=== PATIENT | female | born 1990 | race American Indian/Alaskan Native ===

== ENCOUNTER 2017-12-06 02:03 | Emergency (ER) | payer MEDICAID ==
[2017-12-06 02:46] LABS: Hematocrit 34.3 % (30.3-42.9); Hemoglobin 11.4 gm/dl (10.1-14.3); Mean Corpuscular HGB Conc 33 % (30-34); Mean Corpuscular Volume 78 fl (79-97); Platelet Count 255 K/mm3 (140-440); Red Blood Count 4.41 M/mm3 (3.65-5.03); Red Cell Distribution Width 14.5 % (13.2-15.2)
[2017-12-06 02:51] LABS: Mean Corpuscular Hemoglobin 26 pg (28-32)
[2017-12-06 03:10] LABS: Alanine Aminotransferase 6 units/L (7-56); Albumin 3.5 g/dL (3.9-5); BUN/Creatinine Ratio 15; Blood Urea Nitrogen 6 mg/dL (7-17); Calcium 8.2 mg/dL (8.4-10.2); Hemolysis Index 2
[2017-12-06 03:44] LABS: Band Neutrophils # (Manual) 0.1 K/mm3; Basophils % (Manual) 0 % (0.0-1.8); Total Cells Counted 100
[2017-12-06 03:45] LABS: Anisocytosis 1+; Platelet Estimate Consistent w Auto
--- NOTE | 2017-12-06 05:41 | Ultrasound Report ---
FINAL REPORT EXAM: US OB > = 14 WEEKS FETUS HISTORY: 19 wks gest with vag bleeding TECHNIQUE: Routine transabdominal imaging was obtained of the pelvis including Doppler interrogation of the fetus. FINDINGS: There is a single viable intrauterine in breech position with an estimated gestational age of 19 weeks 4 days based on sonographic criteria. The heart rate is 149 BPM. The placenta is anterior in position and is grade 0. There is no evidence of placental abruption. The amniotic fluid volume is markedly diminished. There are no gross anomalies involving the choroid plexus, cisterna magna, cerebellum, lateral ventricles, stomach, bladder, heart, or three-vessel cord. The kidneys, diaphragm, cord insertion and spine are not adequately seen for evaluation. The cervical length is 3.8 cm. Free fluid is not seen. IMPRESSION: Single viable breech IUP, 19 weeks 4 days. heart rate is 149 BPM. Oligohydramnios.
[2017-12-06 06:08] LABS: Bilirubin,Urine NEG (Negative); Blood,Urine LG (Negative); Color,Urine Yellow (Yellow); Mucus,Urine 1+ /HPF; Protein,Urine <15 mg/dL mg/dL (Negative); Urobilinogen,Urine < 2.0 mg/dL (<2.0)
[2017-12-06 06:11] LABS: RBC,Urine > 182.0 /HPF (0.0-6.0)
[2017-12-06 07:24] VITALS: BP 103/56
--- NOTE | 2017-12-06 07:34 | Emergency Department Report ---
ED HPI - General Chief complaint: Vaginal Bleeding Stated complaint: VAGINAL BLEEDING Time Seen by Provider: 12/06/17 07:30 Source: patient Mode of arrival: Ambulatory Limitations: No Limitations - History of Present Illness Initial comments: 27-year-old female currently 19 weeks presents to the hospital complaining of vaginal bleeding that started 11 PM last night. Patient has used 2 pads since bleeding started. She complains some mild abdominal cramping pain. Patient started having leakage of fluid 2 weeks ago. During this thime she has been admitted to both [facility] and [facility]. Initially at [facility] she was prescribed antibiotics for her fluid leakage. She then went to [facility] for a second opinion and was admitted as well and told that she will need to start antibiotics at 23 weeks. Patient has not contacted her primary [employer] [facility] [employer] [facility] since symptoms started. This is patient's 7 , she has 5 children, and no history of miscarriages or abortions. - Related Data Previous Rx's Medication Instructions Recorded Last Taken Type Ibuprofen [Motrin] 600 mg PO Q6H PRN #60 tablet 01/14/15 Unknown Rx Vit-Fe Fumar-FA [ 1 each PO QDAY #30 tablet 01/14/15 Unknown Rx Vitamin] oxyCODONE /ACETAMINOPHEN [Percocet 1 tab PO Q6HR PRN #30 tablet 01/14/15 Unknown Rx 5/325] Docusate Sodium [Colace] 100 mg PO BID PRN #60 capsule 05/08/16 Unknown Rx Ferrous Sulfate [Feosol 325 MG tab] 325 mg PO TID #120 tablet 05/08/16 Unknown Rx Ibuprofen [Motrin 600 MG tab] 600 mg PO Q6H PRN #30 tablet 05/08/16 Unknown Rx Allergies Allergy/AdvReac Type Severity Reaction Status Date / Time No Known Allergies Allergy Verified 08/08/13 10:11 ED Review of Systems ROS: Stated complaint: VAGINAL BLEEDING Other details as noted in HPI Comment: All other systems reviewed and negative ED Past Medical Hx - Past Medical History Previous Medical History?: No Hx Hypertension: No Hx Heart Attack/AMI: No Hx Congestive Heart Failure: No Hx Diabetes: No Hx Deep Vein Thrombosis: No Hx Liver Disease: No Hx Renal Disease: No Hx Sickle Cell Disease: No Hx Seizures: No Hx Asthma: No Hx COPD: No Hx HIV: No - Surgical History Past Surgical History?: No - Social History Smoking Status: Former Smoker Substance Use Type: None - Medications Home Medications: Home Medications Medication Instructions Recorded Confirmed Last Taken Type Ibuprofen [Motrin] 600 mg PO Q6H PRN #60 tablet 01/14/15 Unknown Rx Vit-Fe Fumar-FA [ 1 each PO QDAY #30 tablet 01/14/15 Unknown Rx Vitamin] oxyCODONE /ACETAMINOPHEN [Percocet 1 tab PO Q6HR PRN #30 tablet 01/14/15 Unknown Rx 5/325] Docusate Sodium [Colace] 100 mg PO BID PRN #60 capsule 05/08/16 Unknown Rx Ferrous Sulfate [Feosol 325 MG tab] 325 mg PO TID #120 tablet 05/08/16 Unknown Rx Ibuprofen [Motrin 600 MG tab] 600 mg PO Q6H PRN #30 tablet 05/08/16 Unknown Rx ED Physical Exam - General Limitations: No Limitations - Other Other exam information: General: No limitations, patient is alert in no acute distress Head exam: Atraumatic, normocephalic Eyes exam: Normal appearance ENT: Moist mucous membrane, normal oropharynx Neck exam: Normal inspection, full range of motion, no meningismus nontender Respiratory exam: Clear to auscultation bilateral, no wheezes, rales, crackles Cardiovascular: Normal rate and rhythm, normal heart sounds Abdomen: Soft, nondistended, and nontender, with normal bowel sounds, no rebound, or guarding Extremity: Full range of motion normal inspection no deformity Back: Normal Inspection, full range of motion, no tenderness Neurologic: Alert, oriented x3, cranial nerves intact, no motor or sensory deficit Psychiatric: normal affect, normal mood Skin: Warm, dry, intact ED Course Vital Signs 12/06/17 02:14 Temperature 98.8 F Pulse Rate 99 H Blood Pressure 103/56 [Left] O2 Sat by Pulse 98 Oximetry - Reevaluation(s) Reevaluation #1: 12/06/17 08:04 Patient was apparently belligerent with staff and upset because of the wait. After I saw patient I informed her that I will speak to her [employer] doctor. I went back to the room and she was gone. The nurse found her in the waiting room and she stated she was waiting for her mother to sheepskin pickler the children. At this time they rechecked on inpatient status and she left the department after being informed that [employer] was going to admit her. - Consultations Consultation #1: 12/06/17 07:41 case d/w [facility] prep room supervisor, will admit pt ED Medical Decision Making - Lab Data Result diagrams: 12/06/17 02:27 12/06/17 02:27 Lab Results 12/06/17 12/06/17 12/06/17 Range/Units 02:27 02:27 02:27 WBC 10.8 (4.5-11.0) K/mm3 RBC 4.41 (3.65-5.03) M/mm3 Hgb 11.4 (10.1-14.3) gm/dl Hct 34.3 (30.3-42.9) % MCV 78 L (79-97) fl MCH 26 L (28-32) pg MCHC 33 (30-34) % RDW 14.5 (13.2-15.2) % Plt Count 255 (140-440) K/mm3 Add Manual Diff Complete Total Counted 100 Seg Neuts % (Manual) 66.0 (40.0-70.0) % Band Neutrophils % 1.0 % Lymphocytes % (Manual) 25.0 (13.4-35.0) % Reactive Lymphs % (Man) 0 % Monocytes % (Manual) 6.0 (0.0-7.3) % Eosinophils % (Manual) 1.0 (0.0-4.3) % Basophils % (Manual) 0 (0.0-1.8) % Metamyelocytes % 1.0 % Myelocytes % 0 % Promyelocytes % 0 % Blast Cells % 0 % Nucleated RBC % Not Reportable Seg Neutrophils # Man 7.1 (1.8-7.7) K/mm3 Band Neutrophils # 0.1 K/mm3 Lymphocytes # (Manual) 2.7 (1.2-5.4) K/mm3 Abs React Lymphs (Man) 0.0 K/mm3 Monocytes # (Manual) 0.6 (0.0-0.8) K/mm3 Eosinophils # (Manual) 0.1 (0.0-0.4) K/mm3 Basophils # (Manual) 0.0 (0.0-0.1) K/mm3 Metamyelocytes # 0.1 K/mm3 Myelocytes # 0.0 K/mm3 Promyelocytes # 0.0 K/mm3 Blast Cells # 0.0 K/mm3 WBC Morphology Not Reportable Hypersegmented Neuts Not Reportable Hyposegmented Neuts Not Reportable Hypogranular Neuts Not Reportable Smudge Cells Not Reportable Toxic Granulation Not Reportable Toxic Vacuolation Not Reportable Dohle Bodies Not Reportable Pelger-Huet Anomaly Not Reportable Too Rods Not Reportable Platelet Estimate Consistent w auto Clumped Platelets Not Reportable Plt Clumps, EDTA Not Reportable Large Platelets Not Reportable Giant Platelets Not Reportable Platelet Satelliting Not Reportable Plt Morphology Comment Not Reportable RBC Morphology Not Reportable Dimorphic RBCs Not Reportable Polychromasia Not Reportable Hypochromasia Not Reportable Poikilocytosis Not Reportable Anisocytosis 1+ Microcytosis Not Reportable Macrocytosis Not Reportable Spherocytes Not Reportable Pappenheimer Bodies Not Reportable Sickle Cells Not Reportable Target Cells Not Reportable Tear Drop Cells Not Reportable Ovalocytes Not Reportable Helmet Cells Not Reportable Clemons-Sehili Bodies Not Reportable Herreid Rings Not Reportable Rayray Cells Not Reportable Bite Cells Not Reportable Crenated Cell Not Reportable Elliptocytes Not Reportable Acanthocytes (Spur) Not Reportable Rouleaux Not Reportable Hemoglobin C Crystals Not Reportable Schistocytes Not Reportable Malaria parasites Not Reportable Noel Bodies Not Reportable Hem Pathologist Commnt No Sodium 135 L (137-145) mmol/L Potassium 3.6 (3.6-5.0) mmol/L Chloride 98.8 (98-107) mmol/L Carbon Dioxide 23 (22-30) mmol/L Anion Gap 17 mmol/L BUN 6 L (7-17) mg/dL Creatinine 0.4 L (0.7-1.2) mg/dL Estimated GFR > 60 ml/min BUN/Creatinine Ratio 15 % Glucose 88 (65-100) mg/dL Calcium 8.2 L (8.4-10.2) mg/dL Total Bilirubin < 0.20 (0.1-1.2) mg/dL AST 10 (5-40) units/L ALT 6 L (7-56) units/L Alkaline Phosphatase 43 (35-129) units/L Total Protein 6.4 (6.3-8.2) g/dL Albumin 3.5 L (3.9-5) g/dL Albumin/Globulin Ratio 1.2 % HCG, Quant 78265 H (0-4) mIU/mL Urine Color (Yellow) Urine Turbidity (Clear) Urine pH (5.0-7.0) Ur Specific Toutle (1.003-1.030) Urine Protein (Negative) mg/dL Urine Glucose (UA) (Negative) mg/dL Urine Ketones (Negative) mg/dL Urine Blood (Negative) Urine Nitrite (Negative) Urine Bilirubin (Negative) Urine Urobilinogen (<2.0) mg/dL Ur Leukocyte Esterase (Negative) Urine WBC (Auto) (0.0-6.0) /HPF Urine RBC (Auto) (0.0-6.0) /HPF U Epithel Cells (Auto) (0-13.0) /HPF Urine Mucus /HPF Blood Type Antibody Screen 12/06/17 12/06/17 Range/Units 02:27 Unknown WBC (4.5-11.0) K/mm3 RBC (3.65-5.03) M/mm3 Hgb (10.1-14.3) gm/dl Hct (30.3-42.9) % MCV (79-97) fl MCH (28-32) pg MCHC (30-34) % RDW (13.2-15.2) % Plt Count (140-440) K/mm3 Add Manual Diff Total Counted Seg Neuts % (Manual) (40.0-70.0) % Band Neutrophils % % Lymphocytes % (Manual) (13.4-35.0) % Reactive Lymphs % (Man) % Monocytes % (Manual) (0.0-7.3) % Eosinophils % (Manual) (0.0-4.3) % Basophils % (Manual) (0.0-1.8) % Metamyelocytes % % Myelocytes % % Promyelocytes % % Blast Cells % % Nucleated RBC % Seg Neutrophils # Man (1.8-7.7) K/mm3 Band Neutrophils # K/mm3 Lymphocytes # (Manual) (1.2-5.4) K/mm3 Abs React Lymphs (Man) K/mm3 Monocytes # (Manual) (0.0-0.8) K/mm3 Eosinophils # (Manual) (0.0-0.4) K/mm3 Basophils # (Manual) (0.0-0.1) K/mm3 Metamyelocytes # K/mm3 Myelocytes # K/mm3 Promyelocytes # K/mm3 Blast Cells # K/mm3 WBC Morphology Hypersegmented Neuts Hyposegmented Neuts Hypogranular Neuts Smudge Cells Toxic Granulation Toxic Vacuolation Dohle Bodies Pelger-Huet Anomaly Too Rods Platelet Estimate Clumped Platelets Plt Clumps, EDTA Large Platelets Giant Platelets Platelet Satelliting Plt Morphology Comment RBC Morphology Dimorphic RBCs Polychromasia Hypochromasia Poikilocytosis Anisocytosis Microcytosis Macrocytosis Spherocytes Pappenheimer Bodies Sickle Cells Target Cells Tear Drop Cells Ovalocytes Helmet Cells Clemons-Sehili Bodies Herreid Rings Rayray Cells Bite Cells Crenated Cell Elliptocytes Acanthocytes (Spur) Rouleaux Hemoglobin C Crystals Schistocytes Malaria parasites Noel Bodies Hem Pathologist Commnt Sodium (137-145) mmol/L Potassium (3.6-5.0) mmol/L Chloride (98-107) mmol/L Carbon Dioxide (22-30) mmol/L Anion Gap mmol/L BUN (7-17) mg/dL Creatinine (0.7-1.2) mg/dL Estimated GFR ml/min BUN/Creatinine Ratio % Glucose (65-100) mg/dL Calcium (8.4-10.2) mg/dL Total Bilirubin (0.1-1.2) mg/dL AST (5-40) units/L ALT (7-56) units/L Alkaline Phosphatase (35-129) units/L Total Protein (6.3-8.2) g/dL Albumin (3.9-5) g/dL Albumin/Globulin Ratio % HCG, Quant (0-4) mIU/mL Urine Color Yellow (Yellow) Urine Turbidity Clear (Clear) Urine pH 5.0 (5.0-7.0) Ur Specific Toutle 1.021 (1.003-1.030) Urine Protein <15 mg/dl (Negative) mg/dL Urine Glucose (UA) Neg (Negative) mg/dL Urine Ketones Neg (Negative) mg/dL Urine Blood Lg (Negative) Urine Nitrite Neg (Negative) Urine Bilirubin Neg (Negative) Urine Urobilinogen < 2.0 (<2.0) mg/dL Ur Leukocyte Esterase Neg (Negative) Urine WBC (Auto) 4.0 (0.0-6.0) /HPF Urine RBC (Auto) > 182.0 (0.0-6.0) /HPF U Epithel Cells (Auto) < 1.0 (0-13.0) /HPF Urine Mucus 1+ /HPF Blood Type O POSITIVE Antibody Screen Negative - Radiology Data Radiology results: report reviewed US FINDINGS: There is a single viable intrauterine in breech position with an estimated gestational age of 19 weeks 4 days based on sonographic criteria. The heart rate is 149 BPM. The placenta is anterior in position and is grade 0. There is no evidence of placental abruption. The amniotic fluid volume is markedly diminished. There are no gross anomalies involving the choroid plexus, cisterna magna, cerebellum, lateral ventricles, stomach, bladder, heart, or three-vessel cord. The kidneys, diaphragm, cord insertion and spine are not adequately seen for evaluation. The cervical length is 3.8 cm. Free fluid is not seen. IMPRESSION: Single viable breech IUP, 19 weeks 4 days. heart rate is 149 BPM. Oligohydramnios - Medical Decision Making vag bleeding does not require rhogam H/H normal oligohydramnios ongoing x 2 weeks as per pt case d/w [employer] will admit for high risk consult Patient left after being told that she will be admitted to the hospital. Therefore admission canceled - Differential Diagnosis miscarriage, oligohydramnios, threatened ab Critical Care Time: No Critical care attestation.: If time is entered above; I have spent that time in minutes in the direct care of this critically ill patient, excluding procedure time. ED Disposition Clinical Impression: 19 weeks gestation of , Oligohydramnios, Vaginal bleeding during Disposition: Z-07 ELOPED Is pt being admited?: No Time of Disposition: 08:06 (eloped)
== END 2017-12-06 08:20 | disposition left against medical advice (07) ==
LOC: ED 02:03
DX: O41.02X0 Oligohydramnios, second trimester, not applicable or unspecified (principal); O20.9 Hemorrhage in early pregnancy, unspecified; Z3A.19 19 weeks gestation of pregnancy
CPT/HCPCS: 36415; 76805; 80053; 81001; 84702; 85007; 85025; 86850; 86900; 86901

== ENCOUNTER 2022-03-21 06:43 | Outpatient (CLI) | payer MEDICAID ==
[2022-03-21 07:36] VITALS: BP 121/60
--- NOTE | 2022-03-21 08:47 | Ultrasound Report ---
ULTRASOUND OBSTETRIC LIMITED INDICATION / CLINICAL INFORMATION: PLACENTA, FHT. Clinical Gestational Age (GA) in weeks, days: 18, 3 TECHNIQUE: Transabdominal. COMPARISON: None available. FINDINGS: HEART RATE (beats per minute): 164 PLACENTA: The placental mathis is noted. The placenta is located anteriorly and is grade 1. PRESENTATION: Breech. ADDITIONAL FINDINGS: None. IMPRESSION: 1. Placenta is located anteriorly and is grade 1. 2. heart rate is 164 bpm. Signer Name: Delbert Hollingsworth MD Signed: 03/21/2022 8:43 AM Workstation Name: [id number]
== END 2022-03-21 07:57 | disposition home or self-care (01) ==
LOC: TRG 06:43 → APU 06:45 → TRG 07:57
PROVIDERS: ATTEND Obstetrics & Gynecology
DX: O46.92 Antepartum hemorrhage, unspecified, second trimester (principal); Z3A.18 18 weeks gestation of pregnancy
CPT/HCPCS: 76815

== ENCOUNTER 2022-04-23 19:03 | Inpatient (IN) | payer MEDICAID ==
--- NOTE | 2022-04-23 21:44 | Ultrasound Report ---
ULTRASOUND OBSTETRIC INDICATION: placenta abruption, uziel, efw. Clinical Gestational Age (GA): 23.1 weeks TECHNIQUE: Transabdominal. COMPARISON: OB ultrasound performed on 09/21/2021. FINDINGS: There is a single intrauterine in breech presentation without visualization of cardia c activity. Estimated age based on measurements is 17.5 weeks. The placenta is located anteriorly and is grade 2 without evidence of abruption. Amniotic fluid index is decreased and measures 4.8 cm. IMPRESSION: 2nd trimester miscarriage without evidence of placental abruption. Signer Name: Aayush Dais MD Signed: 04/23/2022 9:40 PM Workstation Name: [id number]
[2022-04-23] MEDS ORDERED: ACETAMINOPHEN 325 MG TAB PO PRN (22:37)
[2022-04-23] MEDS ORDERED: miSOPROStol 200 MCG TAB PR PRN (22:37)
[2022-04-23] MEDS ORDERED: fentaNYL 100 MCG/2 ML INJ IV PRN (22:37)
[2022-04-23] MEDS ORDERED: CARBOPROST TROMETHAMINE 250 MCG/1 ML INJ IM PRN (22:37)
[2022-04-23] MEDS ORDERED: BUTORPHANOL 2 MG/1 ML INJ IV PRN ×2 (22:37)
[2022-04-23] MEDS ORDERED: OXYTOCIN 10 UNIT/1 ML INJ IM PRN (22:37)
[2022-04-23] MEDS ORDERED: TERBUTALINE 1 MG/1 ML INJ SUB-Q PRN (22:37)
[2022-04-23] MEDS ORDERED: NALOXONE 0.4 MG/1 ML INJ IV PRN (22:37)
[2022-04-23] MEDS ORDERED: METHYLERGONOVINE MALEATE 0.2 MG/ML VIAL IM PRN (22:37)
[2022-04-23] MEDS ORDERED: ONDANSETRON 4 MG/2 ML INJ IV PRN (22:37)
[2022-04-23] MEDS ORDERED: MINERAL OIL 30 ML ORAL LIQD PO PRN (22:37)
[2022-04-23] MEDS ORDERED: LOPERAMIDE 2 MG CAP PO PRN (22:37)
[2022-04-23] MEDS ORDERED: ePHEDrine SULFATE 50 MG/1 ML INJ IV PRN (22:37)
[2022-04-23] MEDS ORDERED: LIDOCAINE (2%) 20 MG/1 ML VIAL 20 ML MDV INFILTRATI ONE (22:37)
[2022-04-23] MEDS ORDERED: LACTATED RINGERS 1,000 ML IV SCH (22:45)
--- NOTE | 2022-04-23 22:52 | History and Physical Report ---
History of Present Illness Date of examination: 04/23/22 Chief complaint: "I have been bleeding everyday for the past three weeks" History of present illness: Pt is a 32 year old -[place] female LEELEE 08/18/22 at 23w2d presents with complaint of bleeding daily for the past three weeks causing her to wear pads daily. She initially presented to triage for vaginal bleeding on 03/21/22, had an ultrasound with no evidence of abruption, and was discharged home on bedrest. She presented to clinic the next day, 03/22/22, where she had a speculum exam with no active bleeding and scant brown blood in the vault. She was instructed to maintain pelvic rest at that time and to follow up in the office in 1 week. She has not been seen in the office since that day, and maintains that she has been bleeding daily since then. She reports that she was feeling movement up until yesterday. 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 Today in triage, the RN was unable to auscultate heart tones so an ultrasound was ordered. The ultrasound revealed absent heart tones, oligohydramnios, and AUA 18wks. Past History Past Medical History: asthma Past Surgical History: other (leg surgery) BOARDMARKER History: chlamydia (remote from this ), gonorrhea (remote history ), herpes, trichomonas (remote history ) Family/Genetic History: other (asthma) Social history: no significant social history - Obstetrical History Expected Date of Delivery: 08/18/22 Actual Gestation: 23 Week(s) 2 Day(s) : 7 Para: 5 Hx # Term Pregnancies: 4 Number of Pregnancies: 1 Spontaneous Abortions: 1 Induced : 0 Number of Living Children: 4 Medications and Allergies Allergies Allergy/AdvReac Type Severity Reaction Status Date / Time No Known Allergies Allergy Verified 08/08/13 10:11 Home Medications Medication Instructions Recorded Confirmed Last Taken Type Ibuprofen [Motrin] 600 mg PO Q6H PRN #60 tablet 01/14/15 Unknown Rx Vit-Fe Fumar-FA [ 1 each PO QDAY #30 tablet 01/14/15 Unknown Rx Vitamin] oxyCODONE /ACETAMINOPHEN [Percocet 1 tab PO Q6HR PRN #30 tablet 01/14/15 Unknown Rx 5/325] Docusate Sodium [Colace] 100 mg PO BID PRN #60 capsule 05/08/16 Unknown Rx Ferrous Sulfate [Feosol 325 MG tab] 325 mg PO TID #120 tablet 05/08/16 Unknown Rx Ibuprofen [Motrin 600 MG tab] 600 mg PO Q6H PRN #30 tablet 05/08/16 Unknown Rx Active Meds: Active Medications Acetaminophen (Acetaminophen 325 Mg Tab) 650 mg PO Q4H PRN PRN Reason: Pain, Mild (1-3) Butorphanol Tartrate (Butorphanol 2 Mg/1 Ml Inj) 1 mg IV Q2H PRN PRN Reason: Pain, Moderate(4-6) LABOR PAIN Butorphanol Tartrate (Butorphanol 2 Mg/1 Ml Inj) 2 mg IV Q2H PRN PRN Reason: Pain , Severe (7-10) Carboprost Tromethamine (Carboprost Tromethamine 250 Mcg/1 Ml Inj) 250 mcg IM ONCE PRN PRN Reason: Uterine Bleeding Ephedrine Sulfate (Ephedrine Sulfate 50 Mg/1 Ml Inj) 10 mg IV Q2M PRN PRN Reason: Hypotension Fentanyl (Fentanyl 100 Mcg/2 Ml Inj) 100 mcg IV Q2H PRN PRN Reason: Pain,Severe (7-10) LABOR PAIN Oxytocin/Sodium Chloride (Pitocin/Ns 30 Unit/500ml) 30 units in 500 mls @ 2 mls/hr IV TITR MERON; Protocol Lactated Ringer's (Lactated Ringers) 1,000 mls @ 125 mls/hr IV DIRECT MERON Oxytocin/Sodium Chloride (Pitocin/Ns 30 Unit/500ml) 30 units in 500 mls @ 40 mls/hr IV TITR MERON; Protocol Lidocaine (Lidocaine (2%) 20 Mg/1 Ml Vial 20 Ml Mdv) 20 ml INFILTRATI ONCE ONE Stop: 04/23/22 22:38 Loperamide HCl (Loperamide 2 Mg Cap) 2 mg PO ONCE PRN PRN Reason: give with Hemabate Methylergonovine Maleate (Methylergonovine Maleate 0.2 Mg/Ml Vial) 0.2 mg IM ONCE PRN PRN Reason: Uterine Bleeding Mineral Oil (Mineral Oil 30 Ml Oral Liqd) 30 ml PO QHS PRN PRN Reason: Constipation Misoprostol (Misoprostol 200 Mcg Tab) 800 mcg MT ONCE PRN PRN Reason: Uterine Bleeding Naloxone HCl (Naloxone 0.4 Mg/1 Ml Inj) 0.1 mg IV Q2MIN PRN PRN Reason: Res Rate </= 8 or 02 SAT < 92% Ondansetron HCl (Ondansetron 4 Mg/2 Ml Inj) 4 mg IV Q8H PRN PRN Reason: Nausea And Vomiting Oxytocin (Oxytocin 10 Unit/1 Ml Inj) 10 unit IM ONCE PRN PRN Reason: Uterine Bleeding Terbutaline Sulfate (Terbutaline 1 Mg/1 Ml Inj) 0.25 mg SUB-Q ONCE PRN PRN Reason: Hyperstimulation/Hypertonicity Review of Systems All systems: negative - Vital Signs Vital signs: Vital Signs Pulse BP 104 H 110/66 04/23/22 19:34 04/23/22 19:34 Temp Pulse Resp BP Pulse Ox 104 H 110/66 04/23/22 19:34 04/23/22 19:34 - Physical Exam Breasts: Positive: deferred Abdomen: Positive: soft (gravid ) Uterus: Positive: enlarged (gravid ) - Obstetrical Uterine Contraction Monitor Mode: External Uterine Contraction Pattern: Absent Uterine Tone Measurement Phase: Resting Results All other labs normal. Assessment and Plan A: Intrauterine demise at 23w2d Vaginal Bleeding Genital Herpes Asthma P: Admit to labor and delivery Admission labs and UDS Begin misoprostol induction
[2022-04-23] MEDS ORDERED: OXYTOCIN DRIP 30 UNITS/500 ML BAG IV SCH (23:00)
[2022-04-23 23:31] LABS: Hematocrit 34.2 % (30.3-42.9); Hemoglobin 11.3 gm/dl (10.1-14.3); Mean Corpuscular HGB Conc 33 % (30-34); Mean Corpuscular Volume 79 fl (79-97); Platelet Count 305 K/mm3 (140-440); Red Blood Count 4.32 M/mm3 (3.65-5.03); Red Cell Distribution Width 14.6 % (13.2-15.2)
[2022-04-24] MEDS ORDERED: miSOPROStol 200 MCG TAB PO SCH
[2022-04-24 01:10] LABS: Amphetamine Screen,Urine PRESUMPTIVE NEGATIVE; Benzodiazepines Screen,Urine PRESUMPTIVE NEGATIVE; Cannabinoid Screen,Urine PRESUMPTIVE POSITIVE; Cocaine Screen,Urine PRESUMPTIVE NEGATIVE; Methadone Screen,Urine PRESUMPTIVE NEGATIVE; Opiate Screen,Urine PRESUMPTIVE NEGATIVE
[2022-04-24] MEDS ORDERED: miSOPROStol 200 MCG TAB VG NR (07:42)
--- NOTE | 2022-04-24 08:26 | Progress Note ---
Assessment and Plan A: Intrauterine demise at 23w2d Vaginal Bleeding Genital Herpes Asthma P: Cytotec 800 mcg placed vaginally to begin induction Continue to monitor maternal status Subjective - Subjective Date of service: 04/24/22 Principal diagnosis: IUFD at 23 wks, Second trimester bleeding Interval history: Due to staffing shortages and in the interest of patient safety, ordered cytotec was not administered overnight. Pt reports continued light bleeding overnight. Patient reports: vaginal bleeding, no new complaints, no loss of fluid, no contractions Objective - Vital Signs Vital Signs: Vital Signs - 12hr 04/24/22 04/24/22 04/24/22 02:38 07:06 07:07 Temperature 99.1 F Pulse Rate 95 H 94 H Blood Pressure 107/56 O2 Sat by Pulse 99 Oximetry 04/24/22 04/24/22 04/24/22 07:12 07:17 07:22 Temperature Pulse Rate 88 93 H 88 Blood Pressure O2 Sat by Pulse 99 100 100 Oximetry 04/24/22 04/24/22 04/24/22 07:27 07:32 07:37 Temperature Pulse Rate 99 H 100 H 98 H Blood Pressure O2 Sat by Pulse 100 100 100 Oximetry 04/24/22 04/24/22 04/24/22 07:42 07:53 07:58 Temperature Pulse Rate 94 H 109 H 103 H Blood Pressure O2 Sat by Pulse 100 100 100 Oximetry 04/24/22 04/24/22 04/24/22 08:03 08:08 08:13 Temperature Pulse Rate 96 H 102 H 88 Blood Pressure O2 Sat by Pulse 100 99 99 Oximetry 04/24/22 04/24/22 08:18 08:23 Temperature Pulse Rate 95 H 92 H Blood Pressure O2 Sat by Pulse 99 100 Oximetry - Exam Breasts: deferred Abdomen: Present: soft (gravid ) Uterus: Present: other (enlarged ) Uterine Contraction Monitor Mode: External Cervical Dilatation: 0.5 Cervical Effacement Percentage: 60 station: -3 Uterine Contraction Pattern: Absent Uterine Tone Measurement Phase: Resting - Labs Labs: Abnormal Labs 04/23/22 23:08 MCH 26 L Laboratory Results - last 24 hr 04/23/22 04/23/22 04/23/22 23:08 23:08 23:57 WBC 9.3 RBC 4.32 Hgb 11.3 Hct 34.2 MCV 79 MCH 26 L MCHC 33 RDW 14.6 Plt Count 305 Urine Opiates Screen Presumptive negative Urine Methadone Screen Presumptive negative Ur Barbiturates Screen Presumptive negative Ur Phencyclidine Scrn Presumptive negative Ur Amphetamines Screen Presumptive negative U Benzodiazepines Scrn Presumptive negative Urine Cocaine Screen Presumptive negative U Marijuana (THC) Screen Presumptive positive Drugs of Abuse Note Disclamer Blood Type O POSITIVE Antibody Screen Negative
[2022-04-24] MEDS ORDERED: NALOXONE 0.4 MG/1 ML INJ IV PRN (10:46)
--- NOTE | 2022-04-24 10:48 | Anesthesia Consultation ---
Anesthesia Consult and Med Hx Date of service: 04/24/22 - Airway Anesthetic Teeth Evaluation: Good ROM Head & Neck: Adequate Mental/Hyoid Distance: Adequate Mallampati Class: Class II Intubation Access Assessment: Probably Good - Pulmonary Exam CTA: Yes - Cardiac Exam Cardiac Exam: RRR - Pre-Operative Health Status ASA Pre-Surgery Classification: ASA2 Proposed Anesthetic Plan: Epidural - Pulmonary Hx Smoking: No Hx Asthma: No Hx Respiratory Symptoms: No SOB: No COPD: No Home Oxygen Therapy: No Hx Pneumonia: No - Cardiovascular System Hx Hypertension: No Hx Coronary Artery Disease: No Hx Heart Attack/AMI: No Hx Angina: No Hx Percutaneous Transluminal Coronary Angioplasty (PTCA): No Hx Cardia Arrhythmia: No Hx Pacemaker: No Hx Internal Defibrillator: No Hx Valvular Heart Disease: No Hx Heart Murmur: No Hx Peripheral Vascular Disease: No - Central Nervous System Hx Neuromuscular Disorder: No Hx Seizures: No CVA: No Hx Back Pain: No Hx Psychiatric Problems: No - Gastrointestinal Hx Ulcer: No Hx Gastroesophageal Reflux Disease: No - Endocrine Hx Renal Disease: No Hx End Stage Renal Disease: No Hx Cirrhosis: No Hx Liver Disease: No Hx Insulin Dependent Diabetes: No Hx Non-Insulin Dependent Diabetes: No Hx Thyroid Disease: No Hx Hypothyroidism: No Hx Hyperthyroidism: No - Hematic Hx Anemia: No Hx Sickle Cell Disease: No - Other Systems Hx Alcohol Use: No Hx Substance Use: No Hx Cancer: No Hx Obesity: No
--- NOTE | 2022-04-24 10:48 | Anesthesia Day of Surgery ---
Anesthesia Day of Surgery - Day of Surgery Patient Examined: Yes Patient H&P Reviewed: Yes Patient is NPO: Yes Beta Blockers: No Cardiac Clearance: No Pulmonary Clearance: No Kenrick's Test: N/A
[2022-04-24] MEDS ORDERED: ePHEDrine SULFATE 50 MG/1 ML INJ IV PRN (11:00)
[2022-04-24] MEDS ORDERED: fentaNYL-BUPIV 2 MCG/ML-0.125% 200 MCG/100 ML BAG EPIDURAL SCH (11:00)
[2022-04-24] MEDS: OXYTOCIN DRIP 30 UNITS/500 ML BAG IV SCH ×2 (12:30→13:14)
--- NOTE | 2022-04-24 13:02 | Procedure Note ---
OB Delivery Note - Delivery Date of Delivery: 04/24/22 Surgeon: MONICA GONZALEZ Estimated blood loss: other (700 mL) - Vaginal Delivery presentation: breech Intrapartum events: abruption Delivery induction: misoprostol Delivery monitor: external uterine Route of delivery: Delivery placenta: expressed Episiotomy: none Delivery laceration: none Anesthesia: epidural - Infant A at 1 minute: 0 at 5 minutes: 0 Infant Gender: Male (wt pending)
[2022-04-24 13:41] LABS: Hematocrit 30.5 % (30.3-42.9); Hemoglobin 9.9 gm/dl (10.1-14.3); Mean Corpuscular HGB Conc 33 % (30-34); Mean Corpuscular Volume 80 fl (79-97); Platelet Count 255 K/mm3 (140-440); Red Cell Distribution Width 14.9 % (13.2-15.2)
[2022-04-24] MEDS ORDERED: diphenhydrAMINE 25 MG CAP PO PRN (17:00)
[2022-04-24] MEDS ORDERED: BENZOCAINE/MENTHOL 20/0.5% TOP SPRAY 56 GM TP PRN (17:00)
[2022-04-24] MEDS ORDERED: WITCH HAZEL/ GLYCERIN PAD TP PRN (17:00)
[2022-04-24] MEDS ORDERED: PROMETHAZINE 25 MG TAB PO PRN (17:30)
[2022-04-24] MEDS ORDERED: PROMETHAZINE 25 MG RECT SUPP PR PRN (17:30)
[2022-04-24] MEDS ORDERED: ONDANSETRON 4 MG/2 ML INJ IV PRN (17:30)
[2022-04-24] MEDS: IBUPROFEN 800 MG TAB PO SCH ×2 (18:00→23:30)
[2022-04-24] MEDS: HYDROcodone/ACETAMINOPHEN 5-325 MG TAB PO PRN (21:23)
[2022-04-24] MEDS ORDERED: FERROUS SULFATE 325 MG TAB PO SCH (22:00)
[2022-04-24] MEDS ORDERED: MAGNESIUM HYDROXIDE (MOM) ORAL LIQD UDC PO PRN (22:00)
--- NOTE | 2022-04-25 00:24 | Progress Note ---
Labor Epidural - Labor Epidural Start Time: 10:25 Stop Time: 10:30 Performed by:: MISTY GROVER Procedure: Epidural Requested for Labor Pain. H&P and PT Chart reviewed and consent obtained. Time out performed and the procedure was explained, all questions answered. Patient was placed in a sitting position with monitors applied. The PTs back was prepped and draped in usual sterile fashion. The Skin was localized with 3 mL of 1% lidocaine at L3-L4. A 17-gauge Touhy epidural needle was advanced to ELENA with saline at 7 cm and no blood/CSF was noted via epidural needle. Epidural catheter was advanced to 12 cm. There was negative aspiration for blood and CSF in the catheter and negative response to a test dose of 3 ml 1.5% lidocaine w/ Epi and a sterile dressing was applied Patient tolerated the procedure well and there were no immediate complications noted.
[2022-04-25 01:23] LABS: Hematocrit 25.7 % (30.3-42.9); Hemoglobin 8.6 gm/dl (10.1-14.3)
[2022-04-25] MEDS: IBUPROFEN 800 MG TAB PO SCH (05:38)
[2022-04-25] MEDS: HYDROcodone/ACETAMINOPHEN 5-325 MG TAB PO PRN (06:58)
[2022-04-25] MEDS ORDERED: medroxyPROGESTERone ACETATE 150 MG/ML SYRINGE IM NR (07:58)
--- NOTE | 2022-04-25 07:59 | Progress Note ---
Assessment and Plan - Patient Problems (1) IUFD at 20 weeks or more of gestation Current Visit: Yes Status: Acute Plan to address problem: Routine care Discharge home Subjective - Subjective Date of service: 04/25/22 Principal diagnosis: IUFD at 23 wks, Second trimester bleeding Interval history: Patient without any significant complaints. She reports having passage of a blood clot. Her pain has been controlled. She is tolerating a regular diet. Patient reports: appetite normal, voiding normally, pain well controlled [place]: Objective - Vital Signs Latest vital signs: Vital Signs Temp Pulse Resp BP BP Pulse Ox 04/25/22 01:48 97.9 F 97 H 20 92/51 99 04/24/22 22:08 98.2 F 94 H 20 107/66 99 04/24/22 20:30 99 04/24/22 16:40 98.2 F 96 H 14 107/61 99 04/24/22 16:28 100 H 100 04/24/22 16:23 116 H 100 04/24/22 16:18 108 H 100 04/24/22 16:16 96 H 101/62 04/24/22 16:13 100 H 100 04/24/22 16:08 98 H 100 04/24/22 16:03 89 100 04/24/22 15:58 117 H 98 04/24/22 15:53 98 H 99 04/24/22 15:48 95 H 99 04/24/22 15:47 100 H 92/55 04/24/22 15:43 95 H 99 04/24/22 15:38 96 H 99 04/24/22 15:33 96 H 100 04/24/22 15:32 94 H 96/55 04/24/22 15:28 101 H 99 04/24/22 15:23 96 H 99 04/24/22 15:18 94 H 99 04/24/22 15:17 93 H 98/53 04/24/22 15:13 95 H 99 04/24/22 15:08 100 H 100 04/24/22 15:03 101 H 100 04/24/22 15:02 96 H 101/57 04/24/22 14:58 103 H 100 04/24/22 14:53 106 H 100 04/24/22 14:48 108 H 100 04/24/22 14:43 104 H 100 04/24/22 14:38 113 H 100 08/30/22 14:35 109 H 87 04/24/22 14:33 110 H 100 04/24/22 14:32 115 H 106/59 04/24/22 14:28 112 H 100 04/24/22 14:23 111 H 100 04/24/22 14:18 94 H 100 04/24/22 14:17 93 H 115/72 04/24/22 14:13 83 100 04/24/22 14:08 85 100 04/24/22 14:03 82 100 04/24/22 14:02 80 109/69 04/24/22 13:58 82 100 04/24/22 13:53 87 100 04/24/22 13:48 82 100 04/24/22 13:47 85 104/66 04/24/22 13:43 83 100 04/24/22 13:38 84 100 04/24/22 13:33 85 100 04/24/22 13:32 87 103/65 04/24/22 13:28 87 100 04/24/22 13:23 83 100 04/24/22 13:18 83 100 04/24/22 13:17 86 92/59 04/24/22 13:13 84 100 04/24/22 13:08 98 H 100 04/24/22 13:03 84 105/63 99 04/24/22 12:58 86 100 04/24/22 12:53 83 100 04/24/22 12:48 92 H 100 04/24/22 12:46 86 95/54 04/24/22 12:43 83 100 04/24/22 12:38 73 76 L 04/24/22 12:34 82 83/40 04/24/22 12:33 84 96/47 99 04/24/22 12:28 68 98 04/24/22 12:23 93 H 99 04/24/22 12:18 88 100 04/24/22 12:16 98.8 F 86 89/53 04/24/22 12:13 87 96/55 100 04/24/22 12:12 81 91/51 04/24/22 12:10 69 101/51 04/24/22 12:08 85 97/56 100 04/24/22 12:06 86 96/49 74 L 04/24/22 12:04 100 H 114/74 04/24/22 12:03 105 H 123/75 100 04/24/22 11:58 110 H 119/65 100 04/24/22 11:56 90 119/72 04/24/22 11:54 102 H 117/74 91 04/24/22 11:53 98 H 98 04/24/22 11:52 93 H 114/73 04/24/22 11:50 81 109/69 04/24/22 11:48 86 109/69 100 04/24/22 11:46 82 111/68 04/24/22 11:44 81 109/69 04/24/22 11:43 85 100 04/24/22 11:42 82 107/68 04/24/22 11:40 82 102/67 04/24/22 11:38 85 102/67 100 04/24/22 11:36 82 103/66 04/24/22 11:34 86 105/66 04/24/22 11:33 84 100 04/24/22 11:32 85 108/65 04/24/22 11:30 82 105/65 04/24/22 11:28 87 101/64 100 04/24/22 11:26 82 104/62 04/24/22 11:24 81 101/64 04/24/22 11:23 83 100 04/24/22 11:22 80 105/63 04/24/22 11:20 83 112/63 04/24/22 11:18 81 101/60 100 04/24/22 11:16 80 99/60 04/24/22 11:14 81 100/62 04/24/22 11:13 81 100 04/24/22 11:12 79 99/60 04/24/22 11:10 83 97/57 04/24/22 11:08 81 100/57 98 04/24/22 11:06 88 100/60 04/24/22 11:04 82 99/57 04/24/22 11:03 82 99 04/24/22 11:02 81 98/56 04/24/22 11:00 86 102/57 04/24/22 10:58 87 101/59 99 04/24/22 10:56 80 102/57 04/24/22 10:54 80 102/59 04/24/22 10:53 80 100 04/24/22 10:52 82 108/56 08/30/22 10:50 87 113/55 04/24/22 10:48 87 117/57 99 04/24/22 10:46 90 119/58 04/24/22 10:44 89 120/62 04/24/22 10:43 91 H 100 04/24/22 10:42 85 113/56 04/24/22 10:40 95 H 133/72 04/24/22 10:38 95 H 127/73 100 04/24/22 10:36 94 H 140/68 04/24/22 10:34 90 141/68 04/24/22 10:33 95 H 98 04/24/22 10:32 107 H 149/83 04/24/22 10:30 90 135/78 04/24/22 10:28 94 H 100 04/24/22 10:23 113 H 100 04/24/22 10:18 82 99 04/24/22 10:13 89 99 04/24/22 10:08 87 98 04/24/22 10:03 83 98 04/24/22 09:58 90 97 04/24/22 09:53 86 97 04/24/22 09:48 95 H 98 04/24/22 09:43 78 100 04/24/22 09:38 81 99 04/24/22 09:33 88 100 04/24/22 09:28 86 100 04/24/22 09:23 92 H 100 04/24/22 09:18 82 100 04/24/22 09:13 96 H 100 04/24/22 09:08 98 H 100 04/24/22 09:03 91 H 100 04/24/22 08:58 83 98 04/24/22 08:53 81 98 04/24/22 08:48 91 H 99 04/24/22 08:43 87 99 04/24/22 08:38 98 H 99 04/24/22 08:33 90 99 04/24/22 08:28 92 H 100 04/24/22 08:23 92 H 100 04/24/22 08:18 95 H 99 04/24/22 08:13 88 99 04/24/22 08:08 102 H 99 04/24/22 08:03 96 H 100 Intake and Output 08/30/22 08/31/22 08/31/22 22:59 06:59 14:59 Intake Total 360 240 Balance 360 240 Intake: Oral 360 240 Other: Total, Intake Amount 240 120 Voiding Method Toilet # Voids Void 2 1 - Labs Labs: Abnormal lab results 04/24/22 04/25/22 Range/Units 12:45 00:56 Hgb 9.9 L 8.6 L (10.1-14.3) gm/dl Hct 25.7 L (30.3-42.9) % MCH 26 L (28-32) pg
--- NOTE | 2022-04-25 08:00 | Discharge Summary ---
Providers - Providers Date of Admission: 04/23/22 22:37 Date of discharge: 04/25/22 Attending physician: MONICA GONZALEZ Primary care physician: MONICA GONZALEZ Hospitalization Reason for admission: IUFD Delivery: complications: other ( hemorrhage) Discharge diagnosis: intrapartum demise Hospital course: The patient was admitted for induction of labor secondary to a second trimester demise. The patient had a vaginal delivery that was complicated by hemorrhage. Her course was uncomplicated. Condition at discharge: Good Disposition: 01 HOME / SELF CARE / HOMELESS - Discharge Diagnoses (1) IUFD at 20 weeks or more of gestation Status: Acute Plan - Discharge Medications Prescriptions: Ibuprofen [Motrin] 800 mg PO Q8HR PRN #30 tablet PRN Reason: Pain , Severe (7-10) HYDROcodone/APAP 5-325 [[place] 5/325] 1 each PO Q6HR PRN #15 tablet PRN Reason: Pain - Provider Discharge Summary Activity: no sex for 6 weeks, no heavy lifting 4 weeks, no strenuous exercise Diet: routine Instructions: routine Additional instructions: [] Smoking cessation referral if applicable(refer to patient education folder for contact #) [] Refer to [facility] Booklet Call your doctor immediately for: * Fever > 100.5 * Heavy vaginal bleeding ( >1 pad per hour) * Severe persistent headache * Shortness of breath * Reddened, hot, painful area to leg or breast * Schedule visit in 4 weeks - Follow up plan
[2022-04-25 12:57] VITALS: BP 116/77
--- NOTE | 2022-04-25 13:11 | Post Anesthesia Evaluation ---
- Post Anesthesia Evaluation Patient Participated: Yes Airway Patent: Yes Stable Respiratory Function: Yes Nausea/Vomiting: No Temp > 96.8F: Yes Pain Manageable: Yes Adequeate Hydration: Yes Anesthesia Complications: No Block Receding Appropriately: Yes Patient on Ventilator: No
[2022-04-25] MEDS ORDERED: MEASLES, MUMPS & RUBELLA 12,500 UNIT/0.5 ML VACCINE SUB-Q ONE (16:00)
[2022-04-25] MEDS ORDERED: TETANUS,DIPH,PERTUSS(ACELL) VACCINE 0.5 ML SYRINGE IM ONE (18:00)
== END 2022-04-25 13:20 | disposition home or self-care (01) | DRG 774 ==
LOC: TRG 19:03 → APU 19:07 → TRG 22:37 → LD 22:37 → OB 04-24 16:36
PROVIDERS: ADMIT Obstetrics & Gynecology; ATTEND Obstetrics & Gynecology
PROC: 10E0XZZ Delivery of Products of Conception, External Approach (ICD-10-PCS; principal; 2022-04-24)
PROC: 3E0R3BZ Introduction of Anesthetic Agent into Spinal Canal, Percutaneous Approach (ICD-10-PCS; 2022-04-24)
PROC: 00HU33Z Insertion of Infusion Device into Spinal Canal, Percutaneous Approach (ICD-10-PCS; 2022-04-24)
PROC: 3E0P7VZ Introduction of Hormone into Female Reproductive, Via Natural or Artificial Opening (ICD-10-PCS; 2022-04-24)
PROC: 3E0234Z Introduction of Serum, Toxoid and Vaccine into Muscle, Percutaneous Approach (ICD-10-PCS; 2022-04-25)
DX: O36.4XX0 Maternal care for intrauterine death, not applicable or unspecified (principal); O98.32 Other infections with a predominantly sexual mode of transmission complicating childbirth; Z3A.23 23 weeks gestation of pregnancy; Z37.1 Single stillbirth; Z23 Encounter for immunization; A60.00 Herpesviral infection of urogenital system, unspecified; O99.52 Diseases of the respiratory system complicating childbirth; O32.1XX0 Maternal care for breech presentation, not applicable or unspecified; O45.93 Premature separation of placenta, unspecified, third trimester; O72.1 Other immediate postpartum hemorrhage; O41.02X0 Oligohydramnios, second trimester, not applicable or unspecified
CPT/HCPCS: 36415; 76816; 80307; 85014; 85018; 85027; 86850; 86900; 86901; 88305; G0378; J3490; J0595; J1050; J2590; J3010; J7120